=== PATIENT | female | born 1975 | race African-American/Black ===

== ENCOUNTER 2017-10-19 13:53 | Emergency (ER) | payer OTHER ==
[~2017-10-19] VITALS: Ht 157.5 cm; Wt 72.6 kg
[2017-10-19] MEDS ORDERED: MEDROLPACK PO (18:57)
[2017-10-19] MEDS ORDERED: CELEBREX200MG PO (18:57)
[2017-10-19] MEDS ORDERED: SKELAXIN800 MG PO (18:57)
== END 2017-10-19 19:06 | disposition home or self-care (01) ==
LOC: ER 13:53
DX: M25.512 Pain in left shoulder (principal); R20.2 Paresthesia of skin